=== PATIENT | female | born 1960 | race Caucasian/White ===

== ENCOUNTER 2018-11-23 03:20 | Emergency (ER) | payer OTHER ==
--- NOTE | 2018-11-23 03:57 | EDM.PDOC ---
ED HPI GENERAL MEDICAL PROBLEM - General Chief Complaint: Chest Pain Stated Complaint: CHEST PAINS Time Seen by Provider: 11/23/18 03:52 Source of Information: Reports: Patient History Limitations: Reports: No Limitations - History of Present Illness INITIAL COMMENTS - FREE TEXT/NARRATIVE: pt arrived with pain in the mid chest radiating into the neck area. She did not get sweaty. Pt was not sob. She did not vomit. She does have a history of gallstones and does have attacks at times. She did have some sausage and soup for supper. Pt does not have a history of cardiac problems. Onset: Today, Sudden, Other (pain did last for about 1 hour. ) Duration: Hour(s): Location: Reports: Chest, Radiates to (neck), Other Associated Symptoms: Reports: Chest Pain Chest Pain Score (Numeric/FACES): 4 - Related Data Allergies Allergy/AdvReac Type Severity Reaction Status Date / Time No Known Allergies Allergy Verified 11/23/18 03:26 Home Meds: Home Meds LORazepam [Ativan] 1 - 2 tab PO DAILY PRN 11/23/18 [History] Past Medical History HEENT History: Reports: Impaired Vision Gastrointestinal History: Reports: Other (See Below) Other Gastrointestinal History: gallstones Genitourinary History: Reports: Renal Calculus [employer]IC History: Reports: Psychiatric History: Reports: Anxiety - Infectious Disease History Infectious Disease History: Reports: Chicken Pox, Mumps - Past Surgical History HEENT Surgical History: Reports: Adenoidectomy, Tonsillectomy GI Surgical History: Reports: Appendectomy Social & Family History - Family History Family Medical History: Noncontributory - Tobacco Use Smoking Status *Q: Never Smoker - Caffeine Use Caffeine Use: Reports: Coffee - Recreational Drug Use Recreational Drug Use: No ED ROS GENERAL - Review of Systems Review Of Systems: See Below Constitutional: Reports: No Symptoms HEENT: Reports: No Symptoms Respiratory: Reports: Shortness of Breath Cardiovascular: Reports: Chest Pain Endocrine: Reports: No Symptoms GI/Abdominal: Reports: Other (pt has slight discomfort in the rt upper abdoman. ) : Reports: No Symptoms Musculoskeletal: Reports: No Symptoms Skin: Reports: No Symptoms ED EXAM, GENERAL - Physical Exam Exam: See Below Free Text/Narrative:: pt arrived with pain in the mid chest. The pain did raduiate to the neck area. She did not feel sob. She did appear somewhat anxious. She had a bd nite in terms of sleep and she developed pain in the chest. Exam Limited By: No Limitations General Appearance: Alert, Anxious, Mild Distress, Other ( The pain has gotten better. Her big concern is how persistent the pain was. ) Ears: Normal TMs Nose: Normal Inspection Throat/Mouth: Normal Inspection Head: Atraumatic Neck: Normal Inspection Respiratory/Chest: No Respiratory Distress Cardiovascular: Regular Rate, Rhythm GI/Abdominal: Soft, Other ( mild tenderness in the rt upper abdoman. ) (Female) Exam: Deferred Rectal (Female) Exam: Deferred Back Exam: Normal Inspection Extremities: Normal Inspection Neurological: Alert, Oriented, Normal Cognition Psychiatric: Anxious Course - Vital Signs Last Recorded V/S: Last Vital Signs Temp 35.7 C 11/23/18 03:28 Pulse 55 L 11/23/18 03:44 Resp 14 11/23/18 03:44 BP 169/80 H 11/23/18 03:44 Pulse Ox 100 11/23/18 03:44 - Orders/Labs/Meds Orders: Active Orders 24 hr Category Date Time Status EKG Documentation Completion [RC] ASDIRECTED Care 11/23/18 03:43 Ordered UA W/MICROSCOPIC [URIN] Urgent Lab 11/23/18 03:52 Ordered EKG 12 Lead [EK] Routine Ther 11/23/18 03:43 Ordered Labs: Laboratory Tests 11/23/18 11/23/18 11/23/18 Range/Units 03:47 03:47 03:47 WBC 9.1 (4.5-11.0) K/uL RBC 4.31 (3.30-5.50) M/uL Hgb 12.7 (12.0-15.0) g/dL Hct 38.8 (36.0-48.0) % MCV 90 (80-98) fL MCH 30 (27-31) pg MCHC 33 (32-36) % Plt Count 360 (150-400) K/uL Neut % (Auto) 38 (36-66) % Lymph % (Auto) 49 H (24-44) % Sandoval % (Auto) 10 H (2-6) % Eos % (Auto) 3 (2-4) % Baso % (Auto) 0 (0-1) % Sodium 141 (140-148) mmol/L Potassium 3.3 L (3.6-5.2) mmol/L Chloride 104 (100-108) mmol/L Carbon Dioxide 27 (21-32) mmol/L Anion Gap 13.3 (5.0-14.0) mmol/L BUN 13 (7-18) mg/dL Creatinine 0.9 (0.6-1.0) mg/dL Est Cr Clr Drug Dosing 70.41 mL/min Estimated GFR (MDRD) > 60 (>60) Glucose 97 (74-106) mg/dL Calcium 9.3 (8.5-10.1) mg/dL Total Bilirubin 0.3 (0.2-1.0) mg/dL AST 20 (15-37) U/L ALT 21 (12-78) U/L Alkaline Phosphatase 91 (46-116) U/L Troponin I < 0.017 (0.000-0.056) ng/mL Total Protein 7.0 (6.4-8.2) g/dL Albumin 3.8 (3.4-5.0) g/dL Globulin 3.2 (2.3-3.5) g/dL Albumin/Globulin Ratio 1.2 (1.2-2.2) - Re-Assessments/Exams Free Text/Narrative Re-Assessment/Exam: 11/23/18 04:12 he pain stayed at about a 2 . She did still appear anxious. She did take a ativan 1 mg. 11/23/18 04:31 pt was given a gi cocktail and the pain is now down to a 1. She feels like this was like some of her GB attacks but more persistent. Departure - Departure Time of Disposition: 04:32 Disposition: Home, Self-Care 01 Condition: Fair Clinical Impression: Atypical chest pain Referrals: PCP,None [Primary Care Provider] - Forms: ED Department Discharge Care Plan Goals: consider a cardiac stress test, rtc should pain get worse. - My Orders Last 24 Hours: My Active Orders 11/23/18 03:43 EKG Documentation Completion [RC] ASDIRECTED EKG 12 Lead [EK] Routine 11/23/18 03:52 UA W/MICROSCOPIC [URIN] Urgent - Assessment/Plan Last 24 Hours: My Active Orders 11/23/18 03:43 EKG Documentation Completion [RC] ASDIRECTED EKG 12 Lead [EK] Routine 11/23/18 03:52 UA W/MICROSCOPIC [URIN] Urgent
[2018-11-23] MEDS ORDERED: Alum Hydrox/Mag Hydrox/Simeth 15 ML, Lidocaine 2% 15 ML PO ONE ×2 (04:15)
== END 2018-11-23 04:50 | disposition home or self-care (01) ==
LOC: JP.ED 03:20
DX: R07.89 Other chest pain (principal); F41.9 Anxiety disorder, unspecified; Z79.899 Other long term (current) drug therapy
CPT/HCPCS: 36415; 80053; 81001; 84484; 85025; 93005; 99285; A9270